=== PATIENT | female | born 1950 | race Caucasian/White ===

== ENCOUNTER 2020-03-13 09:30 | Emergency (ER) | payer MEDICARE, SELFPAY ==
[2020-03-13 09:41] VITALS: BP 119/46; PULSE 78; RESP 18; TEMP 37.5; O2SAT 98
--- NOTE | 2020-03-13 09:49 | ED.URI ---
HPI - URI/Sore Throat General Chief Complaint: Upper Respiratory Infection Stated Complaint: sore throat/cough Time Seen by Provider: 03/13/20 09:49 Source: patient and RN notes reviewed History of Present Illness HPI Narrative: Patient is a 69-year-old female who presents the urgent care with complaints of sore throat, productive cough and postnasal drainage since Tuesday. Patient does not have tonsils but states she has been positive for strep since her tonsils were removed. Patient denies of any fever, shortness of breath, nausea, vomiting. Denies of any known contact with Covid or strep. No other acute complaints. No acute distress noted. Patient aware of the plan of care. Some parts of this dictation were generated by voice recognition software and may contain typographical and/or grammatical inaccuracies. Related Data Home Medications Medication Instructions Recorded Confirmed alprazolam 1 mg PO DAILY 03/13/20 03/13/20 hydralazine 1 mg PO DAILY 03/13/20 03/13/20 levothyroxine 1 mcg PO DAILY 03/13/20 03/13/20 meloxicam 1 mg PO DAILY 03/13/20 03/13/20 metoprolol tartrate 1 mg PO DAILY 03/13/20 03/13/20 omeprazole 1 mg PO DAILY 03/13/20 03/13/20 simvastatin 1 mg PO DAILY 03/13/20 03/13/20 Allergies Allergy/AdvReac Type Severity Reaction Status Date / Time propranolol Allergy Severe Raises BP Verified 03/13/20 09:55 dangerously/ DIZZINESS Penicillins Allergy Intermediate vomiting Verified 03/13/20 09:55 and rash Review of Systems Review of Systems: Narrative: CONSTITUTIONAL: Denies fever, chills, or sweats. EYES: Denies visual changes, redness, or discharge. ENT: Reports of mild sore throat, postnasal drainage CARDIOVASCULAR: Denies chest pain, palpitations, or edema. RESPIRATORY: Reports a mild productive yellow cough without shortness of breath GASTROINTESTINAL: Denies abdominal pain, nausea, vomiting, or diarrhea. GENITOURINARY: Denies dysuria or hematuria. SKIN: Denies rash or itching. MUSCULOSKELETAL: Denies back pain, joint pain, or myalgia. NEUROLOGIC: Denies headache, numbness, or weakness. All other systems reviewed are negative, except as documented in HPI. PMFSH Social History Social History Gender identity (if verbalized by the patient): Female Comments At the time of my signature, I reviewed and agree with the nursing past medical, surgical, social, and family history. There is no relevant family history pertinent to the patient complaint. Exam Narrative: Exam Narrative: GENERAL: This is a well-nourished, well-developed patient, in no apparent distress. HEAD: normocephalic, atraumatic. EYES: PERRL. Sclera clear/white. Vision is grossly intact. EARS: External ears normal, auditory canals clear and without drainage, TMs normal without perforation. Hearing grossly intact. NOSE: External nose normal with no obvious nasal discharge, nares without redness, no rhinorrhea. THROAT: Mucous membranes moist, posterior pharynx clear. Moderate postnasal drainage without exudate. Absent tonsils NECK: Neck supple, non-tender without lymphadenopathy, masses or thyromegaly. CARDIOVASCULAR: Regular rate and rhythm without murmurs, gallops, or rubs. RESPIRATORY: Clear to auscultation. Breath sounds equal bilaterally. No wheezes, rales, or rhonchi. SKIN: warm, intact with no suspicious lesions or rash, good texture and turgor. NEURO: awake, alert, and oriented to person, place and time. There were no obvious focal neurologic abnormalities. EXTREMITIES: No clubbing, cyanosis, or edema. Course Vital Signs Vital signs: Vital Signs Temperature 99.5 F 03/13/20 09:41 Pulse Rate 78 03/13/20 09:41 Respiratory Rate 18 03/13/20 09:41 Blood Pressure 119/46 L 03/13/20 09:41 Pulse Oximetry 98 03/13/20 09:41 Temperature 99.5 F 03/13/20 09:41 Pulse Rate 78 03/13/20 09:41 Respiratory Rate 18 03/13/20 09:41 Blood Pressure 119/46 L 03/13/20 09:41 Pulse Oximetry 98 03/13/20 09
== END 2020-03-13 10:23 | disposition home or self-care (01) ==
PROVIDERS: Emergency Provider Nurse Practitioner Family; PCP Internal Medicine
DX: J06.9 Acute upper respiratory infection, unspecified (principal); E78.00 Pure hypercholesterolemia, unspecified; I10 Essential (primary) hypertension; E05.90 Thyrotoxicosis, unspecified without thyrotoxic crisis or storm
CPT/HCPCS: 87081; 87880; 99213; G0463